=== PATIENT | female | born 1975 | race Caucasian/White ===

== ENCOUNTER 2024-11-16 09:53 | Emergency (ER) | payer SELFPAY ==
--- NOTE | ~2024-11-16 | XR_ITS ---
EXAMINATION: XR chest 2V DATE: 11/16/2024 12:41 INDICATION: Chest tightness TECHNIQUE: PA and lateral views of the chest were obtained. COMPARISON: None FINDINGS: The lungs are clear with no focal airspace opacities, pulmonary edema, pleural effusion or pneumothor ax. The cardiomediastinal silhouette is normal. Mild thoracic spondylosis. IMPRESSION: 1. No acute cardiopulmonary disease. Reviewed, dictated and finalized at location A.
[2024-11-16 09:56] VITALS: BP 174/114; PULSE 69; RESP 16; TEMP 36.4; O2SAT 99
--- NOTE | 2024-11-16 10:01 | ECG_ITS ---
Test Date: 2024-11-16 10:06:30 Measurements Intervals [place] Rate: 60 P: 21 ND: 147 QRS: 39 QRSD: 89 T: 41 QT: 407 QTc: 410 Interpretive Statements SINUS RHYTHM BASELINE ARTIFACT- I, II, AVR NORMAL ECG No previous ECG available for comparison Electronically Signed On 11-16-2024 10:16:18 CDT by Luigi Toro D.O.
[2024-11-16 10:32] LABS: Basophils Percent Auto 0.3 % (0.2-1.2); Eosinophils Absolute Auto 0.2 K/mm3 (0-0.3); Eosinophils Percent Auto 2.3 % (0-4.4); Hematocrit 41.9 % (37.0-47.0); Hemoglobin 13.7 g/dL (12.0-15.0); Immature Granulocyte Absolute 0.02 K/mm3 (0.00-0.031); Immature Granulocyte Percent A 0.2 % (0-0.5); Lymphocytes Absolute Auto 1.42 K/mm3 (0.9-3.2); Lymphocytes Percent Auto 16.4 % (18.3-44.2); Mean Corpuscular HGB Conc 32.7 g/dl (32-36); Mean Corpuscular Hemoglobin 29.3 pg (26-34); Mean Corpuscular Volume 89.7 fl (80-100); Mean Platelet Volume 10.4 fl (7.4-10.4); Monocytes Absolute Auto 0.6 K/mm3 (0.1-0.6); Monocytes Percent Auto 6.5 % (2.6-8.5); Neutrophils Absolute Auto 6.4 K/mm3 (1.3-6.7); Neutrophils Percent Auto 74.3 % (45.5-73.1); Platelet Count Result 251 k/mm3 (150-375); Red Blood Count 4.67 M/mm3 (4.2-5.4); Red Cell Distribution Width 13.2 % (11.5-14.5); White Blood Count 8.7 K/mm3 (4.5-10.0)
[2024-11-16 10:42] LABS: Alanine Aminotransferase 20 U/L (6-35); Albumin Level 4.4 g/dL (3.5-5.1); Alkaline Phosphatase 69 U/L (38-126); Anion Gap 11 mmol/L (4-12); Aspartate Amino Transferase 21 U/L (14-36); Bilirubin,Total 0.9 mg/dL (0.2-1.3); Blood Urea Nitrogen 13 mg/dL (7-17); Calcium 9.1 mg/dL (8.4-10.2); Carbon Dioxide 24 mmol/L (22-30); Chloride 108 mmol/L (98-107); Estimated CRCL calculation 111 ml/min; Estimated Glomerular Filt Rate > 60; Glucose 107 mg/dL (65-110); Lipase 20 U/L (23-300); Potassium 3.6 mmol/L (3.4-5.0); Sodium 143 mmol/L (137-145)
[2024-11-16 10:49] LABS: INR 1.1; Prothrombin Time 14.3 Seconds (11.1-14.7)
[2024-11-16 10:51] LABS: Partial Thromboplastin Time 45.4 Seconds (22.3-36.8)
--- OUTSIDE RECORDS SUMMARY | 2024-11-16 10:51 | XMS_ITS | CONTINUITY OF CARE DOCUMENT ---
Author Name job kaiser Address Unknown Organization [facility] Address [address] [place] [address] [address] [place] [address] Phone [phone] Care Team Providers Care Manpower Development Advisor Name Role Phone Сергей Arnold MD Unavailable [phone] NAHUN HANKS MD Unavailable NAHUN HANKS MD Unavailable INSURANCE PROVIDERS Payer name Policy type / Coverage type [employer] party ID HEALTHCARE AND FAMILY SERVICES Medicaid 1 [id number]
[2024-11-16 10:54] LABS: Troponin I < 0.012 ng/mL (0.000-0.034)
--- NOTE | 2024-11-16 11:20 | ED.ANXIETY ---
HPI - Anxiety General Chief Complaint: Anxiety <Court Sheridan PA-C - Last Filed: 11/16/24 15:07> Stated Complaint: multiple complaints <Court Sheridan PA-C - Last Filed: 11/16/24 15:07> Time Seen by Provider: 11/16/24 11:20 <Court Sheridan PA-C - Last Filed: 11/16/24 15:07> Focused HPI: This is a 49 year Reports she has had a lot of change in her life and it is overwhelming her. Reports she does not feel like she wants to eat. Reports a headache. Reports she feels shaky. Her heart is beating fast. Reports my body just doesn't feel like me . No thoughts of harming herself or anyone else. GENERAL: Well-appearing, well-nourished, and in no acute distress. HEAD: Normocephalic, atraumatic. CHEST: Clear to auscultation. ?No respiratory distress. HEART: Regular rate and rhythm.? NEURO: ?Alert and oriented x3. Patient screened in triage and initial orders placed.? ?Additional care and disposition to be based upon?diagnostic testing and treatment. <Court Sheridan PA-C - Last Filed: 11/16/24 15:07> History of Present Illness HPI narrative: Agree with HPI. Patient reports increased stress related to being unemployed and financial issues. When she tries to eat she feels too nauseous to do some. She is having some depression. No thoughts of harm to self or others. <Oscar Chavez MD - Last Filed: 11/16/24 14:56> Related Data Allergies/Adverse Reactions: Allergies Allergy/AdvReac Type Severity Reaction Status Date / Time Penicillins Allergy Hives Verified 11/16/24 10:00 <Court Sheridan PA-C - Last Filed: 11/16/24 15:07> Review of Systems Review of Systems: All systems reviewed & are unremarkable except as noted in HPI and below <Oscar Chavez MD - Last Filed: 11/16/24 14:56> Constitutional: Constitutional: Reports no additional constitutional complaints <Oscar Chavez MD - Last Filed: 11/16/24 14:56> ENT: Reports system reviewed and no additional complaints, except as documented <Oscar Chavez MD - Last Filed: 11/16/24 14:56> Cardiovascular: Cardiovascular: Reports no additional cardiovascular complaints <Oscar Chavez MD - Last Filed: 11/16/24 14:56> Respiratory: Respiratory: Reports no additional respiratory complaints <Oscar Chavez MD - Last Filed: 11/16/24 14:56> Gastrointestinal: Gastrointestinal: Reports no additional gastrointestinal complaints <Oscar Chavez MD - Last Filed: 11/16/24 14:56> Neurologic: Reports system reviewed and no additional complaints, except as documented <Oscar Chavez MD - Last Filed: 11/16/24 14:56> Psychiatric: Psychiatric: Denies anxiety, Reports depression, Denies homicidal ideation and Denies suicidal ideation <Oscar Chavez MD - Last Filed: 11/16/24 14:56> PMFSH Past Medical History Medical History: Medical History (Updated 11/16/24 @ 15:[address] Sheridan PA-C) History of hypertension <Court Sheridan PA-C - Last Filed: 11/16/24 15:07> Social History Social History: Social History (Updated 11/16/24 @ 11:[address] Sheridan PA-C) Smoking status: Current every day smoker Tobacco type: e-cigarettes/vaping Alcohol intake: current Alcohol use details: occasional Substance use: current Substance use type: does not use <Court Sheridan PA-C - Last Filed: 11/16/24 15:07> Exam Narrative: GENERAL: Tearful-appearing, well-nourished, and in no acute distress. HEAD: Normocephalic, atraumatic. ENT: Nares clear, no rhinorrhea or epistaxis. Mucous membranes moist. NECK: Supple. CHEST: Clear to auscultation. No respiratory distress. HEART: Regular rate and rhythm. Normal peripheral pulses. ABDOMEN: Soft, nontender, nondistended. EXTREMITIES: Normal range of motion. No edema. SKIN: Warm, dry, no rash. NEURO: Alert and oriented x3. PSYCH: Tearful, reports depression but no SI/HI. Normal thought content. <Oscar Chavez MD - Last Filed: 11/16/24 14:56> Course Course Emergency Course: No acute lab abnormalities. Discussed follow-up with a therapist for her depression. Patient is having some headaches a Toradol given. Discharge home. <Oscar Chavez MD - Last Filed: 11/16/24 14:56> Vital Signs Vital signs: Vital Signs Temperature 97.6 F 11/16/24 09:56 Pulse Rate 69 11/16/24 09:56 Respiratory Rate 16 11/16/24 09:56 Blood Pressure 174/114 H 11/16/24 09:56 Pulse Oximetry 99 11/16/24 09:56 Oxygen Delivery Room Air 11/16/24 09:56 Temperature 97.6 F 11/16/24 09:56 Pulse Rate 62 11/16/24 15:00 Respiratory Rate 15 11/16/24 15:00 Blood Pressure 145/88 H 11/16/24 15:00 Pulse Oximetry 100 11/16/24 15:00 Oxygen Delivery Room Air 11/16/24 09:56 <Court Sheridan PA-C - Last Filed: 11/16/24 15:07> Vital Signs Temperature 97.6 F 11/16/24 09:56 Pulse Rate 69 11/16/24 09:56 Respiratory Rate 16 11/16/24 09:56 Blood Pressure 174/114 H 11/16/24 09:56 Pulse Oximetry 99 11/16/24 09:56 Oxygen Delivery Room Air 11/16/24 09:56 Temperature 97.6 F 11/16/24 09:56 Pulse Rate 62 11/16/24 15:00 Respiratory Rate 15 11/16/24 15:00 Blood Pressure 145/88 H 11/16/24 15:00 Pulse Oximetry 100 11/16/24 15:00 Oxygen Delivery Room Air 11/16/24 09:56 <Oscar Chavez MD - Last Filed: 11/16/24 14:56> MDM - Anxiety Lab Data Result diagrams: 11/16/24 10:18 11/16/24 10:18 <Court Sheridan PA-C - Last Filed: 11/16/24 15:07> Labs: Lab Results 11/16/24 11/16/24 Range/Units 10:18 13:15 WBC 8.7 (4.5-10.0) K/mm3 RBC 4.67 (4.2-5.4) M/mm3 Hgb 13.7 (12.0-15.0) g/dL Hct 41.9 (37.0-47.0) % MCV 89.7 (80-100) fl MCH 29.3 (26-34) pg MCHC 32.7 (32-36) g/dl RDW 13.2 (11.5-14.5) % Plt Count 251 (150-375) k/mm3 MPV 10.4 (7.4-10.4) fl Immature Gran % (Auto) 0.2 (0-0.5) % Neut % (Auto) 74.3 H (45.5-73.1) % Lymph % (Auto) 16.4 L (18.3-44.2) % [place] % (Auto) 6.5 (2.6-8.5) % Eos % (Auto) 2.3 (0-4.4) % Baso % (Auto) 0.3 (0.2-1.2) % Lymph # (Auto) 1.42 (0.9-3.2) K/mm3 [place] # (Auto) 0.6 (0.1-0.6) K/mm3 Eos # (Auto) 0.2 (0-0.3) K/mm3 Baso # (Auto) 0.0 (0.0-0.1) K/mm3 Abs Immat Gran (auto) 0.02 (0.00-0.031) K/mm3 Absolute Neuts (auto) 6.4 (1.3-6.7) K/mm3 Absolute Nucleated RBC 0.000 (0.0-0.012) K/mm3 Nucleated RBC % 0.0 (0.0-0.2) % PT 14.3 (11.1-14.7) Seconds INR 1.1 APTT 45.4 H (22.3-36.8) Seconds Sodium 143 (137-145) mmol/L Potassium 3.6 (3.4-5.0) mmol/L Chloride 108 H (98-107) mmol/L Carbon Dioxide 24 (22-30) mmol/L Anion Gap 11 (4-12) mmol/L BUN 13 (7-17) mg/dL Creatinine 0.66 L (0.7-1.0) mg/dL Estim Creat Clear Calc 111 ml/min Estimated GFR > 60 (59 - ) Glucose 107 (65-110) mg/dL Calcium 9.1 (8.4-10.2) mg/dL Total Bilirubin 0.9 (0.2-1.3) mg/dL AST 21 (14-36) U/L ALT 20 (6-35) U/L Alkaline Phosphatase 69 (38-126) U/L Troponin I < 0.012 < 0.012 (0.000-0.034) ng/mL Total Protein 7.0 (6.3-8.2) g/dL Albumin 4.4 (3.5-5.1) g/dL Lipase 20 L (23-300) U/L TSH (Reflex) 0.896 (0.465-4.68) uIU/mL Ethyl Alcohol < 10 (<10) mg/dL <Court Sheridan PA-C - Last Filed: 11/16/24 15:07> Lab Results 11/16/24 11/16/24 Range/Units 10:18 13:15 WBC 8.7 (4.5-10.0) K/mm3 RBC 4.67 (4.2-5.4) M/mm3 Hgb 13.7 (12.0-15.0) g/dL Hct 41.9 (37.0-47.0) % MCV 89.7 (80-100) fl MCH 29.3 (26-34) pg MCHC 32.7 (32-36) g/dl RDW 13.2 (11.5-14.5) % Plt Count 251 (150-375) k/mm3 MPV 10.4 (7.4-10.4) fl Immature Gran % (Auto) 0.2 (0-0.5) % Neut % (Auto) 74.3 H (45.5-73.1) % Lymph % (Auto) 16.4 L (18.3-44.2) % [place] % (Auto) 6.5 (2.6-8.5) % Eos % (Auto) 2.3 (0-4.4) % Baso % (Auto) 0.3 (0.2-1.2) % Lymph # (Auto) 1.42 (0.9-3.2) K/mm3 [place] # (Auto) 0.6 (0.1-0.6) K/mm3 Eos # (Auto) 0.2 (0-0.3) K/mm3 Baso # (Auto) 0.0 (0.0-0.1) K/mm3 Abs Immat Gran (auto) 0.02 (0.00-0.031) K/mm3 Absolute Neuts (auto) 6.4 (1.3-6.7) K/mm3 Absolute Nucleated RBC 0.000 (0.0-0.012) K/mm3 Nucleated RBC % 0.0 (0.0-0.2) % PT 14.3 (11.1-14.7) Seconds INR 1.1 APTT 45.4 H (22.3-36.8) Seconds Sodium 143 (137-145) mmol/L Potassium 3.6 (3.4-5.0) mmol/L Chloride 108 H (98-107) mmol/L Carbon Dioxide 24 (22-30) mmol/L Anion Gap 11 (4-12) mmol/L BUN 13 (7-17) mg/dL Creatinine 0.66 L (0.7-1.0) mg/dL Estim Creat Clear Calc 111 ml/min Estimated GFR > 60 (59 - ) Glucose 107 (65-110) mg/dL Calcium 9.1 (8.4-10.2) mg/dL Total Bilirubin 0.9 (0.2-1.3) mg/dL AST 21 (14-36) U/L ALT 20 (6-35) U/L Alkaline Phosphatase 69 (38-126) U/L Troponin I < 0.012 < 0.012 (0.000-0.034) ng/mL Total Protein 7.0 (6.3-8.2) g/dL Albumin 4.4 (3.5-5.1) g/dL Lipase 20 L (23-300) U/L TSH (Reflex) 0.896 (0.465-4.68) uIU/mL Ethyl Alcohol < 10 (<10) mg/dL <Oscar Chavez MD - Last Filed: 11/16/24 14:56> Imaging Data Radiologist's impression: ITS Impressions Chest X-Ray 11/16/24 12:42 IMPRESSION: 1. No acute cardiopulmonary disease. <Oscar Chavez MD - Last Filed: 11/16/24 14:56> ECG Data EKG #1: ECG completion date: 11/16/24 <Oscar Chavez MD - Last Filed: 11/16/24 14:56> ECG completion time: 13:12 <Oscar Chavez MD - Last Filed: 11/16/24 14:56> EKG Interpretation: bradycardia (56), sinus rhythm, non-specific ST changes, normal QRS, normal QT and NL axis <Oscar Chavez MD - Last Filed: 11/16/24 14:56> Critical Care Time Critical Care Time Critical Care Time: No <Court Sheridan PA-C - Last Filed: 11/16/24 15:07> Discharge Plan Discharge Clinical Impression: Nausea, Generalized headache Depression Qualifiers: Depression Type: unspecified Qualified Code(s): F32.A - Depression, unspecified <Court Sheridan PA-C - Last Filed: 11/16/24 15:07> Patient Disposition: Home <Corut Sheridan PA-C - Last Filed: 11/16/24 15:07> Condition: Stable <Court Sheridan PA-C - Last Filed: 11/16/24 15:07> Instructions: Depression (ED), General Headache (ED) <Court Sheridan PA-C - Last Filed: 11/16/24 15:07> Additional Instructions: Return ER if you are having thoughts of harming herself or others, you develop fever over 100.4? F, you cannot keep down food or water, or you have additional concerns. <Court Sheridan PA-C - Last Filed: 11/16/24 15:07> Patient Language: Azerbaijani <Court Sheridan PA-C - Last Filed: 11/16/24 15:07> Prescriptions: New ondansetron 4 mg tablet,disintegrating 4 mg PO Q6H PRN (Reason: nausea and vomiting) Qty: 10 0RF <Court Sheridan PA-C - Last Filed: 11/16/24 15:07> Follow-up/Referrals: [facility] [Outside] - 1 Week PHYSICIAN NOT ON STAFF,NONSTAFF [Non-Staff] - 1 Week <Court Sheridan PA-C - Last Filed: 11/16/24 15:07>
[2024-11-16 12:15] LABS: Ethanol < 10 mg/dL (<10)
[2024-11-16] MEDS: ONDANSETRON INJ 4 MG/2 ML VIAL IV PUSH (12:32)
[2024-11-16] MEDS: ACETAMINOPHEN 500 MG TABLET 1000 MG PO (12:32)
[2024-11-16] MEDS: SODIUM CHLORIDE 0.9% IV 1,000 ML 999 ML IV CONT (12:32)
[2024-11-16 12:52] LABS: Thyroid Stimulating Hormone Reflex 0.896 uIU/mL (0.465-4.68)
--- NOTE | 2024-11-16 13:03 | ECG_ITS ---
Test Date: 2024-11-16 13:12:02 Measurements Intervals [place] Rate: 56 P: 20 AL: 142 QRS: 42 QRSD: 90 T: 42 QT: 401 QTc: 388 Interpretive Statements SINUS BRADYCARDIA WITH SINUS ARRHYTHMIA BASELINE ARTIFACT- I, II, AVR, AVL, AVF, V1 BORDERLINE ECG Compared to ECG 11/16/2024 10:06:30 NO SIGNIFICANT CHANGE Electronically Signed On 11-16-2024 13:16:03 CDT by Luigi Toro D.O.
--- OUTSIDE RECORDS SUMMARY | 2024-11-16 13:27 | XMS_ITS | Clinical Summary ---
Author Organization [facility] Address [address] [place] [address] Care Team Providers Care Puttying And Calking Supervisor Name Role Phone Renetta Degroot Primary Care Provider [phone] Source Comments [facility] Affiliates and Associated Physician Practices is amultiple site organization consisting of ambulatory clinics and hospital sitesin [place], [place], [place] and [place]. This disclosure is being madepursuant to the Care Everywhere program and may not contain all information available regarding this patient. Last updated 18.[facility] Allergies Active Allergy Reactions Criticality Noted Date Comments Penicillins Rash Medium 01/23/2017 Tramadol Itching 11/12/2017 Medications * Be aware that medications may not be up to date on this document. Alwaysverify current medications with the patient. Medication Sig Dispensed Refills Start Date End Date Status methocarbamol (ROBAXIN) 750 MG tablet Take 1 Tab by mouth every 8 hours as needed for Muscle Spasms 20 Tab 01/23/2017 Active Additional Information Patient not taking.Reported on 12/22/2023 lidocaine (LIDODERM) 5 % patch 1 Patch once daily 30 Patch 01/23/2017 Active naproxen (NAPROSYN) 500 MG tablet Take 1 Tab by mouth 2 times daily as needed for Pain 20 Tab 01/23/2017 Active amLODIPine (NORVASC) 5 MG tablet Take 5 mg by mouth once daily Active valACYclovir (VALTREX) 500 MG tablet Take 500 mg by mouth once daily Active meclizine (ANTIVERT) 25 MG tablet Take 1 tablet by mouth 3 times daily 12 tablet 02/03/2019 Active Additional Information Patient not taking.Reported on 12/22/2023 losartan (Cozaar) 50 MG tablet Take 1 (one) tablet by mouth once daily Active Social History Tobacco Use Types Packs/Day Years Used Date Smoking Tobacco: Never Smokeless Tobacco: Never Alcohol Use Standard Drinks/Week Comments No 0 (1 standard drink = 0.6 oz pur e alcohol) Sex and Gender Information Value Date Recorded Sex Assigned at Not on file Gender Identity Not on file Sexual Orientation Not on file Last Filed Vital Signs Vital Sign Reading Time Taken Comments Blood Pressure 172/96 12/22/2023 11:24 AM CDT Pulse 66 12/22/2023 11:24 AM CDT Temperature 36.5 C (97.7 F) 12/22/2023 11:24 AM CDT Respiratory Rate 16 12/22/2023 11:24 AM CDT Oxygen Saturation 98% 12/22/2023 11:24 AM CDT Inhaled Oxygen Concentration - - Weight 99.6 kg (219 lb 9.3 oz) 12/22/2023 11:24 AM CDT Height 176.5 cm (5' 9.49 ) 12/22/2023 11:24 AM C DT Body Mass Index 31.97 12/22/2023 11:24 AM CDT Plan of Treatment Health Maintenance Due Date Last Done Comments COLOGUARD (AGES 45-75) - COL ON CA SCREENING 1975 COLON MONITORING 1975 COLONOSCOPY - COLON CA SCREENING 1975 CT COLONOGRAPHY - COLON CA SCREENING 1975 Colorectal Cancer Screening 1975 FIT - COLON CA SCREENING 1975 FLEX SIG - COLON CA SCREENING 1975 LIPID TESTING 1975 MAMMOGRAM 1975 PAP SMEAR 1975 HIV SCREENING 1990 HEPATITIS C SCREENING 03/17/1993 DTAP/TDAP/TD VACCINES (1 - Tdap) 1994 HEPATITIS B VACCINE (1 of 3 - 19+ 3-dose series) 1994 COVID-19 VACCINE (2 - 2023-2 5 season) 2024 04/14/2021 DEPRESSION SCREENING 08/11/2024 ZOSTER VACCINE (1 of 2) 2025 INFLUENZA VACCINE (Season Ended) 2025 HIB VACCINE Aged Out No longer eligi ble based on patient's age to complete this topic HPV VACCINE Aged Out No longer eligi ble based on patient's age to complete this topic MENINGOCOCCAL (Group B) VACC INE SHARED DECISION-MAKING Aged Out No longer eligibl e based on patient's age to complete this topic MENINGOCOCCAL GROUPS A/C/Y/W VACCINE Aged Out No longer eligible b ased on patient's age to complete this topic PNEUMOCOCCAL VACCINE Aged Out No long er eligible based on patient's age to complete this topic Care Teams Puttying And Calking Supervisor Relationship Specialty Start Date End Date Renetta Degroot PA [address] [place] [id number] PCP - General Physician Mri Ct Tech 01/23/17
--- OUTSIDE RECORDS SUMMARY | 2024-11-16 13:27 | XMS_ITS | Clinical Summary ---
Author Organization [facility] Address [address] [place] [address] Care Team Providers Care Studio Coordinator Name Role Phone Renetta Degroot PA-C Primary Care Provider [phone] Allergies Active Allergy Reactions Criticality Noted Date Comments Penicillin V Anaphylaxis High 11/13/2018 Medications ondansetron 4 MG disintegrating tablet Take 1 tablet (4 mg total) by mouth every 8 (eight) hours as needed for Nausea. 12 tablet 9 Active guaiFENesin-Codeine 100-10 MG/5ML Syrup Take 10 mLs by mouth every 6 (six) hours as needed (cough). 100 mL 9 Active amLODIPine (NORVASC) 5 MG tablet Take 1 tablet (5 mg total) by mouth daily. 30 tablet 1 Active methylPREDNISolone, KADIE, 4 MG tablet Take 1 tablet (4 mg total) by mouth daily. MEDROL dose pack as directed 1 each 1 Active ondansetron 4 MG disintegrating tablet Take 1 tablet (4 mg total) by mouth every 8 (eight) hours as needed for Nausea. 20 tablet 1 Active Social History Tobacco Use Types Packs/Day Years Used Date Smoking Tobacco: Never Smokeless Tobacco: Never Alcohol Use Standard Drinks/Week Comments No 0 (1 standard drink = 0.6 oz pur e alcohol) AUDIT-C Answer Date Recorded Frequency of Alcohol Consumption Never 11/13/2018 Average Number of Drinks Not on file 019 Frequency of Binge Drinking Not on file 12/2018 Comments No Sex and Gender Information Value Date Recorded Sex Assigned at Not on file Legal Sex Female 2:42 PM CDT Gender Identity Not on file Sexual Orientation Not on file Last Filed Vital Signs Vital Sign Reading Time Taken Comments Blood Pressure 133/95 08/06/2021 11:48 AM VACATION GUIDE Pulse 60 08/06/2021 11:48 AM VACATION GUIDE Temperature 36.8 C (98.2 F) 08/06/2021 11:48 AM VACATION GUIDE Respiratory Rate 20 08/06/2021 11:48 AM VACATION GUIDE Oxygen Saturation 97% 08/06/2021 11:48 AM VACATION GUIDE Inhaled Oxygen Concentration - - Weight 97.5 kg (215 lb) 09/03/2020 12:46 PM VACATION GUIDE Height 175.3 cm (5' 9 ) 09/03/2020 12:46 PM VACATION GUIDE Body Mass Index 31.75 09/03/2020 12:46 PM VACATION GUIDE Plan of Treatment Health Maintenance Due Date Last Done Comments Cervical Cancer Screening Pa p Smear (Age 30 to 64) Every 3 Years 1975 Colorectal Cancer Screening Colonoscopy (10 Years) 1975 Annual Physical 1978 Hepatitis C 1993 Hepatitis B Vaccines (1 of 3 - 19+ 3-dose series) 1994 DTaP, Tdap and Td Vaccines ( 1 - Tdap) 02/25/1999 02/24/1999 Cervical Cancer Screening Pa p with HPV Testing (Age 30 to 64) Every 5 Years 2005 Cervical Cancer Screening with HPV 2005 Mammogram Screening 2015 COVID-19 Vaccine (2 - 2023-2 5 season) 2024 04/14/2021 Meningococcal B Vaccine Aged Out No l onger eligible based on patient's age to complete this topic Meningococcal Vaccine Aged Out No chucky maricel eligible based on patient's age to complete this topic Pneumococcal Vaccine: Pediat rics (0 to 5 Years) and At-Risk Patients (6 to 64 Years) Aged Out No longer eligi ble based on patient's age to complete this topic RSV Immunizations Under 20 Months Aged Out No longer eligible based on patient's age to complete this topic Insurance COVID19 [facility] [place] [address] Care Teams Studio Coordinator Relationship Specialty Start Date End Date Renetta Degroot PA-C PCP - General 09/03/20
--- OUTSIDE RECORDS SUMMARY | 2024-11-16 13:27 | XMS_ITS | CONTINUITY OF CARE DOCUMENT ---
Author Name job kaiser Address Unknown Organization [facility] Address [address] [place] [address] [address] [place] [address] Phone [phone] Care Team Providers Care Deli Cutter Slicer Name Role Phone Сергей Arnold MD Unavailable [phone] NAHUN HANKS MD Unavailable [phone] NAHUN HANKS MD Unavailable INSURANCE PROVIDERS Payer name Policy type / Coverage type [place] [employer] HEALTHCARE AND FAMILY SERVICES Medicaid 1 [id number]
--- OUTSIDE RECORDS SUMMARY | 2024-11-16 13:27 | XMS_ITS | Referral Summary ---
Author Organization [facility] Address [address] [place] [address] Care Team Providers Care Band Sawmill Operator Name Role Phone Renetta Degroot Primary Care Provider [phone] Allergies Active Allergy Reactions Criticality Noted Date Comments Penicillins Anaphylaxis,Hives,Rash High 08/30/2014 Hives - Tramadol Itching High 11/12/2017 Other reaction(s): Rash - Medications promethazine (PHENERGAN) 25 mg suppository Insert 1 suppository (25 mg total) into the rectum every 6 (six) hours as needed for nausea or vomiting 12 suppository 08/10/20 21 Active HYDROcodone-tonia taminophen (NORCO) 5-325 mg per tabletIndicatio ns:Pain Take 1 tablet by mouth every 6 (six) hours as needed for pain 10 tablet 11/29/19 23 Active ondansetron (ZOFRAN) 4 mg tablet Take 1 tablet (4 mg total) by mouth every 6 (six) hours 12 tablet 11/29/19 23 Active cephalexin (KEFLEX) 500 mg capsule Take 1 capsule (500 mg total) by mouth 4 (four) times a day 28 capsule 11/29/19 23 Active Social History Tobacco Use Types Packs/Day Years Used Date Smoking Tobacco: Never Tobacco Cessation:Counseling Given: Not Answered Alcohol Use Standard Drinks/Week Comments Never 0 (1 standard drink = 0.6 oz pur e alcohol) Personal Safety Answer Date Recorded Getting School Help Needed Not on file 05/01 Comments No Sex and Gender Information Value Date Recorded Sex Assigned at Not on file Legal Sex Female 7:32 PM DYNAMO TENDER Gender Identity Not on file Sexual Orientation Not on file Last Filed Vital Signs Vital Sign Reading Time Taken Comments Blood Pressure 166/102 03/31/2023 3:15 PM CDT Pulse 76 03/31/2023 3:15 PM CDT Temperature 36.7 C (98.1 F) 03/31/2023 3:15 PM CDT Respiratory Rate 20 03/31/2023 3:15 PM CDT Oxygen Saturation 100% 03/31/2023 3:15 PM CDT Inhaled Oxygen Concentration - - Weight 103.9 kg (229 lb 0.9 oz) 03/31/2023 3:15 PM CDT Height 175.3 cm (5' 9 ) 03/31/2023 3:15 PM CDT Body Mass Index 33.83 03/31/2023 3:15 PM CDT Plan of Treatment Not on file Care Teams Band Sawmill Operator Relationship Specialty Start Date End Date Renetta Degroot PA [address] [place] [address] PCP - General 12/11/20
--- OUTSIDE RECORDS SUMMARY | 2024-11-16 13:27 | XMS_ITS | Clinical Summary ---
Author Organization [facility] Address [address] [place] [address] Care Team Providers Care Drama Therapist Name Role Phone Renetta Degroot Primary Care Provider [phone] Allergies Active Allergy Reactions Criticality Noted Date [...] a day 28 capsule 11/29/19 23 Active Surgical History Surgery Date Site/Laterality Comments HYSTERECTOMY Medical History Medical History Date Comments Hypertension Social History Tobacco Use Types Packs/Day Years [...] on file Legal Sex Female 7:32 PM LABEL PASTER Gender Identity Not on file Sexual Orientation Not on file Obstetrics History Last Filed Vital Signs Vital Sign Reading [...] 03/31/2023 3:15 PM CDT Plan of Treatment Health Maintenance Due Date Last Done Comments Breast Cancer Screening-Mammogram 1975 Colon Cancer Screening-Colonoscopy 1975 Depression Screening 1975 Hepatitis C Screening 1975 Hepatitis B Screening 1993 Regular Well Visit/Exam 18-64 1993 DTaP/Tdap/Td Vaccine (1 - Tdap) 02/25/199902/24/ 9 Covid-19 Vaccine (2 - 2023-2 5 season) 2024 04/14/2021 Influenza Vaccine (#1) 2024 Pneumococcal vaccine <65 Aged Out No longer eligible based on patient's age to complete this topic Care Teams Drama Therapist Relationship Specialty Start Date End Date Renetta Degroot PA [address] [place] [address] PCP - General 12/11/20
[2024-11-16 13:50] LABS: Troponin I < 0.012 ng/mL (0.000-0.034)
[2024-11-16 14:09] VITALS: BP 148/87; PULSE 75; RESP 18; O2SAT 98
--- NOTE | 2024-11-16 14:50 | PC.NURSE ---
Patient ambulated to the restroom with steady gate
[2024-11-16] MEDS: KETOROLAC 30 MG/ML VIAL (*BKC) IV PUSH (14:59)
[2024-11-16 15:00] VITALS: BP 145/88; PULSE 62; RESP 15; O2SAT 100
== END 2024-11-16 15:22 | disposition home or self-care (01) ==
PROVIDERS: Physician Assistant; Student in an Organized Health Care Education/Training Program; Emergency Provider Emergency Medicine
DX: R51.9 Headache, unspecified (principal); F32.A Depression, unspecified; R11.0 Nausea; R00.1 Bradycardia, unspecified; I10 Essential (primary) hypertension
CPT/HCPCS: 36415; 71046; 80053; 82077; 83690; 84443; 84484; 85025; 85610; 85730; 93005; 96361; 96374; 96375; 99284; A9270; J1885; J2405; J7030

== ENCOUNTER 2024-12-05 10:14 | Emergency (ER) | payer SELFPAY ==
--- NOTE | ~2024-12-05 | CT_ITS ---
EXAMINATION: CT brain wo con DATE: 12/05/2024 10:28 INDICATION: Severe headache TECHNIQUE: Computed tomography (CT) of the head was performed without intravenous contrast. Sagittal and coronal reconstructions were performed. The mA was adjusted according to patient size. Iterative reconstruction technique was employed. The dose-length product was 605.33 mGy-cm. COMPARISON: None FINDINGS: No acute intracranial hemorrhage, acute infarction or abnormal extra axial fluid collection. Ventricl es are normal and symmetric. The pituitary appears enlarged, completely filling the sella bulging sli ghtly above the level of the sella. The orbits, paranasal sinuses and mastoid air cells are normal. IMPRESSION: 1. Pituitary appears enlarged which could be due to pituitary hyperplasia, pituitary adenoma, versus apophysitis or venous congestion in the setting of intracranial hypertension. Correlate clinically an d consider follow-up pre and post contrast pituitary protocol MRI. Reviewed, dictated and finalized at location A. IMPRESSION: 1. Pituitary appears enlarged which could be due to pituitary hyperplasia, pitu itary adenoma, versus apophysitis or venous congestion in the setting of intrac ranial hypertension. Correlate clinically and consider follow-up pre and post c ontrast pituitary protocol MRI.
--- NOTE | ~2024-12-05 | XR_ITS ---
EXAMINATION: XR chest 1V portable DATE: 12/05/2024 10:30 INDICATION: Hypertension TECHNIQUE: frontal view of the chest was obtained. COMPARISON: Chest radiograph dated 11/16/2024 FINDINGS: Mild linear discoid atelectasis at the lateral left lower lung zone. No other airspace opacities, pul monary edema, pleural effusion or pneumothorax. The cardiomediastinal silhouette is normal. Mild thor acolumbar levocurvature. IMPRESSION: 1. Mild discoid atelectasis in the left lower lung zone. Reviewed, dictated and finalized at location A.
--- OUTSIDE RECORDS SUMMARY | 2024-12-05 10:16 | XMS_ITS | Clinical Summary ---
Author Organization [facility] Address [address] [place] [address] Care Team Providers Care Finnish Rubber Name Role Phone Renetta Degroot PA-C Primary Care Provider [phone]- [phone] Allergies Active Allergy Reactions Criticality Noted Date [...] mouth daily. 30 tablet 1 Active methylPREDNISolone, KAIDE, 4 MG tablet Take 1 tablet (4 [...] Comments Blood Pressure 133/95 08/06/2021 11:48 AM MACHINE FIXER Pulse 60 08/06/2021 11:48 AM MACHINE FIXER Temperature 36.8 C (98.2 F) 08/06/2021 11:48 AM MACHINE FIXER Respiratory Rate 20 08/06/2021 11:48 AM MACHINE FIXER Oxygen Saturation 97% 08/06/2021 11:48 AM MACHINE FIXER Inhaled Oxygen Concentration - - Weight 97.5 kg (215 lb) 09/03/2020 12:46 PM MACHINE FIXER Height 175.3 cm (5' 9 ) 09/03/2020 12:46 PM MACHINE FIXER Body Mass Index 31.75 09/03/2020 12:46 PM MACHINE FIXER Plan of Treatment Health Maintenance Due Date [...] 5 Years) and At-Risk Patients (6 to 49 Years) Aged Out No longer eligi ble based on patient's age to complete this topic RSV Immunizations Under 20 Months Aged Out No longer eligible based on patient's age to complete this topic Insurance COVID19 [facility] UNINSURED TESTING [place] [address] Care Teams Finnish Rubber Relationship Specialty Start Date End Date Renetta Degroot PA-C PCP - General 09/03/20
--- OUTSIDE RECORDS SUMMARY | 2024-12-05 10:16 | XMS_ITS | Clinical Summary ---
Author Organization 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
--- OUTSIDE RECORDS SUMMARY | 2024-12-05 10:16 | XMS_ITS | Continuity of Care Document ---
Author Organization [facility] Address [address] [place] [address] Phone Care Team Providers Care Reroller Hand Name Role Phone Jaylin Pablo Unavailable Unavailable Allergies, Adverse Reactions, Alerts Substance Reaction Status Criticality Penicillins Active No Information Procedures Procedure Date Office consultation, [facility] Copay Payment Charge Advance Directives Directive Yes / No Effective Date File Name Resuscitation Not Answered N/A N/A Life Support Not Answered N/A N/A Intubation Not Answered N/A N/A Antibiotics Not Answered N/A N/A IV Fluid Support Not Answered N/A N/A Tube Feed Not Answered N/A N/A Other Directive N/A N/A WARNING:The information contained in this section is historical and is provided for information only and does not constitute a legal document or any assurance that the information is still accurate. Please verify the information with the hercules of the legal document before using it for clinical purposes. Encounters Encounter Description Practice Location Reason(s) For Visit Diagnoses Date Provider Providers Copied on Encounter Office consultation , [facility], [address] [place] [address], [id number], tel:[phone] [place] [facility] cervical spine pain (chief complaint) lumbar spine pain (chief complaint) BackacheDegenerat ion Of Lumbosacral Disc (DDD)Sciatica Due To Displacement Of Lumbar DiscLumbago - Low Back Pain 3 Elliot Mosqueda. [address] [place] [address], [id number] , . tel:[phone] Family History Family Member Type Diagnosis Age At Onset Problem (finding) Family history of Cance r Payers Payer name Insurance type Covered republican ID Authoriza tion(s) IDPA [id number] Social History Type Description Quantity Date Captured Comments Alcohol Use Details Unknown Caffeine Use Details Unknown Tobacco Use Status Smoking Status Current every day smoker Smoking Tobacco Use Details Cigarette: No Details Available Cigarette: No Details Available Sex Female Vital Signs Date / Time: Height Weight BMI Pulse Rate Blood Pressure Temperature Respiratory Rate Body Surface Area Head Circumference Head Circ. Percentile Wt./Brandan. Percentile BMI percentile Pulse Ox Inhaled Ox 9:55 AM 69.00 in 88.904 kg (196.00 lbs) 38.2 8 kg/m eter (2) 136/90 mm[Hg] 1.94 meter(2) Chief Complaint And Reason For Visit From encounter dated '05/28/2013 10:00'. cervical spine pain (chief complaint). Description: Onset: 6 months ago. The severity of the problem is moderate. The problem has not changed. The frequency of pain is constant. Pertinent negatives include rash. lumbar spine pain (chief complaint). Description: Location of pain is lower back and right flank. Pain is radiated to the back, right calf and right foot. The patient describes the pain as an ache, burning, numbness and shooting. Context: no injury. Symptoms are aggravated by daily activities, standing and walking. The patient denies relieving factors. Reason For Referral Reason For Referral No Information Plan Of Treatment Date Type Action Status Referral Ordered: referred to [facility] / Dr Elam for LESI (related to Backache) ordered History Of Present Illness Encounter Date Complaint History Of Prese nt Illness cervical spine pain Onset: 6 mon ths ago. The severity of the problem is moderate. The problem has not changed. The frequency of pain is constant. Pertinent negatives include rash. lumbar spine pain Location of pa in is lower back and right flank. Pain is radiated to the back, right calf and right foot. The patient describes the pain as an ache, burning, numbness and shooting. Context: no injury. Symptoms are aggravated by daily activities, standing and walking. The patient denies relieving factors. Functional Status Date Functional Assessmen t No Information Instructions Date Instruction Additional Infor mation Medications as instructed Relate d to Backache Assessments Type Assessment Date No Information Patient Care Teams Name Effective Dates (start - stop) Status Members No Information
--- OUTSIDE RECORDS SUMMARY | 2024-12-05 10:16 | XMS_ITS | CONTINUITY OF CARE DOCUMENT ---
Author Name job kaiser Address Unknown Organization [facility] Address [address] [place] [address] [address] [place] [address] Phone [phone] Care Team Providers Care Chief Operating Officer Name Role Phone Сергей Arnold MD Unavailable [phone] NAHUN HANKS MD Unavailable NAHUN HANKS MD Unavailable INSURANCE PROVIDERS Payer name Policy type / Coverage type Anderson red libertarian ID HEALTHCARE AND FAMILY SERVICES Medicaid 1 [id number]
--- OUTSIDE RECORDS SUMMARY | 2024-12-05 10:16 | XMS_ITS | Clinical Summary ---
Author Organization [facility] Address [address] [place] [address] Care Team Providers Care Criminalist Technician Name Role Phone Renetta Degroot Primary Care Provider [phone] Source Comments [facility],non-[facility] Affiliates and Associated Physician Practices is amultiple site organization consisting of ambulatory clinics and hospital sitesin [place], [place], [place] and [place]. This disclosure is being madepursuant to the Care Everywhere program and may not contain all information available regarding this patient. Last updated 18.[facility] Allergies Active Allergy Reactions Criticality Noted Date Comments Penicillins Rash Medium 01/23/2017 Tramadol Itching 11/12/2017 Medications * Be aware that medications may not be up to date on this document. Alwaysverify current medications with the patient. methocarbamol (ROBAXIN) 750 MG tablet Take 1 Tab by mouth every 8 hours as needed for Muscle Spasms 20 Tab 7 Active Additional Information Patient not taking.Reported on 12/22/2023 lidocaine (LIDODERM) 5 % patch 1 Patch once daily 30 Patch 7 Active naproxen (NAPROSYN) 500 MG tablet Take 1 Tab by mouth 2 times daily as needed for Pain 20 Tab 7 Active amLODIPine (NORVASC) 5 MG tablet Take 5 mg by mouth once daily Active valACYclovir (VALTREX) 500 MG tablet Take 500 mg by mouth once daily Active meclizine (ANTIVERT) 25 MG tablet Take 1 tablet by mouth 3 times daily 12 tablet 9 Active Additional Information Patient not taking.Reported on 12/22/2023 losartan (Cozaar) 50 MG tablet Take 1 (one) tablet by mouth once daily Active Social History Tobacco Use Types Packs/Day Years Used Date Smoking Tobacco: Never Smokeless Tobacco: Never Alcohol Use Standard Drinks/Week Comments No 0 (1 standard drink = 0.6 oz pur e alcohol) Comments No Sex and Gender Information Value Date Recorded Sex Assigned at Not on file Legal Sex Female 9:34 PM MATERIALS CLERK Gender Identity Not on file Sexual Orientation [...] age to complete this topic Care Teams Criminalist Technician Relationship Specialty Start Date End Date Renetta Degroot PA [address] [id number] PCP - General Physician Electrical Control Assembler 01/23/17
--- OUTSIDE RECORDS SUMMARY | 2024-12-05 10:16 | XMS_ITS | Referral Summary ---
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
--- NOTE | 2024-12-05 10:18 | ECG_ITS ---
Test Date: 2024-12-05 10:39:38 Measurements Intervals [place] Rate: 64 P: 17 UT: 154 QRS: 8 QRSD: 88 T: 8 QT: 400 QTc: 416 Interpretive Statements SINUS RHYTHM BORDERLINE ST-T WAVE ABNORMALITY- ANTEROLATERAL LEADS BASELINE ARTIFACT- I, III, AVL, V4-V6 BORDERLINE ECG Compared to ECG 11/16/2024 13:12:02 HEART RATE HAS INCREASED Electronically Signed On 12-05-2024 12:44:49 CDT by Luigi Toro D.O.
--- OUTSIDE RECORDS SUMMARY | 2024-12-05 10:46 | XMS_ITS | Clinical Summary ---
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 [place] [address] PCP - General 12/11/20
--- OUTSIDE RECORDS SUMMARY | 2024-12-05 10:46 | XMS_ITS | Clinical Summary ---
Author Organization [facility] Address [address] [place] [address] Care Team Providers Care Invoice Machine Operator Name Role Phone Renetta Degroot Primary Care Provider [phone] Source Comments [facility],non-[facility] Affiliates and Associated Physician Practices is amultiple site organization consisting of ambulatory clinics and hospital sitesin [place], [place], [place] and [place]. This disclosure is being madepursuant to the Care Everywhere program and may not contain all information available regarding this patient. 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
--- OUTSIDE RECORDS SUMMARY | 2024-12-05 10:46 | XMS_ITS | Referral Summary ---
Author Organization [facility] Address [address] [place] [address] Care Team Providers Care Manager Report Name Role Phone Renetta Degroot Primary Care Provider [phone] Allergies Active Allergy Reactions Criticality Noted Date [...] on file Legal Sex Female 7:32 PM CONTENT SPECIALIST Gender Identity Not on file Sexual Orientation [...] of Treatment Not on file Care Teams Manager Report Relationship Specialty Start Date End Date Renetta Degroot PA [address] [place] [address] PCP - General 12/11/20
--- OUTSIDE RECORDS SUMMARY | 2024-12-05 10:46 | XMS_ITS | CONTINUITY OF CARE DOCUMENT ---
Author Name job kaiser Address Unknown Organization [facility] Address [address] [place] [address] [address] [place] [address] Phone [phone] Care Team Providers Care Patient Financial Advocate Name Role Phone Сергей Arnold MD Unavailable NAHUN HANKS MD Unavailable NAHUN HANKS MD Unavailable INSURANCE PROVIDERS Payer name Policy type / Coverage type [employer] red constitution party ID HEALTHCARE AND FAMILY SERVICES Medicaid 1 [id number]
--- OUTSIDE RECORDS SUMMARY | 2024-12-05 10:46 | XMS_ITS | Continuity of Care Document ---
Author Organization [facility] Address [address] [place] [address] Phone Care Team Providers Care Loss Control Consultant Name Role Phone Jaylin Pablo Unavailable Unavailable Allergies, Adverse Reactions, Alerts Substance Reaction Status Criticality Penicillins Active No Information Procedures Procedure Date Office consultation, [facility] Copay Payment Charge Advance Directives Directive [...] Providers Copied on Encounter Office consultation , [facility], [address] [place] [address], [id number], tel:[phone] [place] [facility] cervical spine pain (chief complaint) lumbar spine pain (chief complaint) BackacheDegenerat ion Of Lumbosacral Disc (DDD)Sciatica Due To Displacement Of Lumbar DiscLumbago - Low Back Pain 3 Elliot Mosqueda. [address] [place] [address], [id number] , . tel:[phone] Family History Family Member Type Diagnosis Age At Onset Problem (finding) Family history of Cance r Payers Payer name Insurance type Covered green party ID Authoriza tion(s) IDPA [id number] Social History Type Description Quantity Date Captured [...]
--- OUTSIDE RECORDS SUMMARY | 2024-12-05 10:46 | XMS_ITS | Clinical Summary ---
Author Organization [facility] Address [address] [place] [address] Care Team Providers Care Grade Foreman Name Role Phone Renetta Degroot PA-C Primary Care Provider [phone]- [phone] Allergies Active Allergy Reactions Criticality Noted Date [...] Comments Blood Pressure 133/95 08/06/2021 11:48 AM NATURAL HISTORY COLLECTIONS CURATOR Pulse 60 08/06/2021 11:48 AM NATURAL HISTORY COLLECTIONS CURATOR Temperature 36.8 C (98.2 F) 08/06/2021 11:48 AM NATURAL HISTORY COLLECTIONS CURATOR Respiratory Rate 20 08/06/2021 11:48 AM NATURAL HISTORY COLLECTIONS CURATOR Oxygen Saturation 97% 08/06/2021 11:48 AM NATURAL HISTORY COLLECTIONS CURATOR Inhaled Oxygen Concentration - - Weight 97.5 kg (215 lb) 09/03/2020 12:46 PM NATURAL HISTORY COLLECTIONS CURATOR Height 175.3 cm (5' 9 ) 09/03/2020 12:46 PM NATURAL HISTORY COLLECTIONS CURATOR Body Mass Index 31.75 09/03/2020 12:46 PM NATURAL HISTORY COLLECTIONS CURATOR Plan of Treatment Health Maintenance Due Date [...] age to complete this topic Insurance COVID19 [facility] UNINSURED TESTING [place] [address] Care Teams Grade Foreman Relationship Specialty Start Date End Date Renetta Degroot PA-C PCP - General 09/03/20
[2024-12-05 10:48] LABS: Basophils Absolute Auto 0.1 K/mm3 (0.0-0.1); Basophils Percent Auto 0.6 % (0.2-1.2); Eosinophils Absolute Auto 0.2 K/mm3 (0-0.3); Eosinophils Percent Auto 2.5 % (0-4.4); Hematocrit 40.7 % (37.0-47.0); Hemoglobin 13.3 g/dL (12.0-15.0); Immature Granulocyte Absolute 0.02 K/mm3 (0.00-0.031); Immature Granulocyte Percent A 0.2 % (0-0.5); Lymphocytes Absolute Auto 1.51 K/mm3 (0.9-3.2); Lymphocytes Percent Auto 17.1 % (18.3-44.2); Mean Corpuscular HGB Conc 32.7 g/dl (32-36); Mean Corpuscular Hemoglobin 29.3 pg (26-34); Mean Corpuscular Volume 89.6 fl (80-100); Mean Platelet Volume 10.6 fl (7.4-10.4); Monocytes Absolute Auto 0.6 K/mm3 (0.1-0.6); Monocytes Percent Auto 6.6 % (2.6-8.5); Neutrophils Absolute Auto 6.5 K/mm3 (1.3-6.7); Platelet Count Result 249 k/mm3 (150-375); Red Blood Count 4.54 M/mm3 (4.2-5.4); Red Cell Distribution Width 13.1 % (11.5-14.5); White Blood Count 8.8 K/mm3 (4.5-10.0)
[2024-12-05 10:58] VITALS: BP 176/122; PULSE 65; RESP 16; O2SAT 100
[2024-12-05 10:59] LABS: Anion Gap 7 mmol/L (4-12); Blood Urea Nitrogen 12 mg/dL (7-17); Calcium 8.8 mg/dL (8.4-10.2); Carbon Dioxide 26 mmol/L (22-30); Chloride 108 mmol/L (98-107); Estimated CRCL calculation 106 ml/min; Estimated Glomerular Filt Rate > 60; Glucose 109 mg/dL (65-110); Potassium 3.7 mmol/L (3.4-5.0); Sodium 141 mmol/L (137-145)
--- NOTE | 2024-12-05 10:59 | ED_ITS ---
HPI - Recheck/Abnormal Lab/Rx General Chief Complaint: Recheck/Abnormal Lab/Rx Stated Complaint: htn Time Seen by Provider: 12/05/24 10:17 History of Present Illness HPI narrative: 49-year-old female with a past medical history including hypertension on losartan. Patient presents to the emergency room with chief complaint of a migraine headache with pain and throbbing sensation behind her right eye. She describes light sensitivity and sound sensitivity. Headache going on for last 2 days. Constant in nature. No exertional onset and she was waking up from sleep with the headache. States that she occasionally gets headaches with migraines and when her blood pressures are elevated. Her blood pressure was 190/110 at home and she was concerned and came to the hospital. In triage her blood pressure is 176/122. Did take her morning medications including Tylenol for headache without any relief of symptoms. Denies any shortness a breath, abdominal pain, back pain, fever, chills, trauma or injury. Does endorse light sensitivity and nauseousness without vomiting. No neurological deficits and ambulates with a steady gait. Related Data Allergies Allergy/AdvReac Type Severity Reaction Status Date / Time Penicillins Allergy Hives Verified 12/05/24 10:42 Review of Systems 2 Review of Systems: As [facility] Past Medical History Medical History History of hypertension Social History Social History Smoking status: Current every day smoker Tobacco type: e-cigarettes/vaping Alcohol intake: current Alcohol use details: occasional Substance use: current Substance use type: does not use Exam 2 Narrative: GENERAL: [Well-appearing, well-nourished, and in no acute distress.] HEAD: [Normocephalic, atraumatic.] EYES: [PERRLA and EOMI.] ENT: Nares clear, no rhinorrhea or epistaxis. Mucous membranes moist. NECK: Supple. CHEST: [Clear to auscultation. No respiratory distress.] HEART: [Regular rate and rhythm]. No murmur heard. [Normal peripheral pulses.] ABDOMEN: [Soft, nondistended], [nontender], [No rigidity or guarding] EXTREMITIES: Normal range of motion. [No edema.] SKIN: Warm, dry, no rash. NEURO: [No focal deficits]. Alert and oriented [x3.] PSYCH: [Normal mood and affect.] Course Vital Signs Vital signs: Vital Signs Pulse Rate 65 12/05/24 10:58 Respiratory Rate 16 12/05/24 10:58 Blood Pressure 176/122 H 12/05/24 10:58 Pulse Oximetry 100 12/05/24 10:58 Pulse Rate 63 12/05/24 12:19 Respiratory Rate 16 12/05/24 12:19 Blood Pressure 154/83 H 12/05/24 12:19 Pulse Oximetry 98 12/05/24 12:19 MDM - Recheck/Abnormal Lab/Rx MDM Narrative Medical decision making narrative: 49-year-old female with history of hypertension and previous migraines. She presents to the emergency depart with elevated blood pressure readings and a headache on the right side that is throbbing in nature, constant sensation for the last 2 days. No trauma or preceding symptoms. She woke up 2 days ago with a headache. Endorses photophobia and nauseousness with no other symptoms of neurological deficit. She is ambulatory with a steady gait, strong symmetric pulses and moving all extremities equally. She appears uncomfortable during my initial assessment but not any physical or respiratory distress. She has elevated blood pressure 176/120 to but not severe range. No other vital concerns. Symptoms consistent with potential migraine headache, tension-type headache, cluster headache. Low suspicion for acute intracranial pathology such as a subarachnoid hemorrhage or mass. Possibility of hypertensive crisis with the elevated blood pressure readings at home. Workup including CBC, BMP, CT of the head, chest x-ray and EKG ordered. She was given a combination medications for symptom relief including Compazine, diphenhydramine, Decadron and magnesium. She was re-evaluated after medications. Patient's laboratory studies are all reassuring. No leukocytosis or anemia. Normal platelet count. Electrolytes unremarkable. Normal renal function, normal glucose. Patient's chest x-ray is unremarkable. Her CT of the head shows some pituitary enlargement which could be hyperplasia versus adenoma. She is not having any visual deficits on examination and on re-evaluation had complete symptomatic resolution for migraine headache and felt significantly improved. She will be provided neurosurgical follow-up for this for potential MRI imaging outpatient and she was given strict return precautions which she verbalized. Patient is safe and stable for discharge home at this time. Medical Records Attestation: I reviewed the patient's medical records. Lab Data Attestation: I reviewed the patient's lab results. 12/05/24 10:41 12/05/24 10:41 Labs: Lab Results 12/05/24 Range/Units 10:41 WBC 8.8 (4.5-10.0) K/mm3 RBC 4.54 (4.2-5.4) M/mm3 Hgb 13.3 (12.0-15.0) g/dL Hct 40.7 (37.0-47.0) % MCV 89.6 (80-100) fl MCH 29.3 (26-34) pg MCHC 32.7 (32-36) g/dl RDW 13.1 (11.5-14.5) % Plt Count 249 (150-375) k/mm3 MPV 10.6 H (7.4-10.4) fl Immature Gran % (Auto) 0.2 (0-0.5) % Neut % (Auto) 73.0 (45.5-73.1) % Lymph % (Auto) 17.1 L (18.3-44.2) % [place] % (Auto) 6.6 (2.6-8.5) % Eos % (Auto) 2.5 (0-4.4) % Baso % (Auto) 0.6 (0.2-1.2) % Lymph # (Auto) 1.51 (0.9-3.2) K/mm3 [place] # (Auto) 0.6 (0.1-0.6) K/mm3 Eos # (Auto) 0.2 (0-0.3) K/mm3 Baso # (Auto) 0.1 (0.0-0.1) K/mm3 Abs Immat Gran (auto) 0.02 (0.00-0.031) K/mm3 Absolute Neuts (auto) 6.5 (1.3-6.7) K/mm3 Absolute Nucleated RBC 0.000 (0.0-0.012) K/mm3 Nucleated RBC % 0.0 (0.0-0.2) % Sodium 141 (137-145) mmol/L Potassium 3.7 (3.4-5.0) mmol/L Chloride 108 H (98-107) mmol/L Carbon Dioxide 26 (22-30) mmol/L Anion Gap 7 (4-12) mmol/L BUN 12 (7-17) mg/dL Creatinine 0.70 (0.7-1.0) mg/dL Estim Creat Clear Calc 106 ml/min Estimated GFR > 60 (59 - ) Glucose 109 (65-110) mg/dL Calcium 8.8 (8.4-10.2) mg/dL Imaging Data Attestation: I personally reviewed and interpreted this imaging study as follows: My impression: Impressions Head CT 12/05/24 10:37 IMPRESSION: 1. Pituitary appears enlarged which could be due to pituitary hyperplasia, pituitary adenoma, versus apophysitis or venous congestion in the setting of intracranial hypertension. Correlate clinically and consider follow-up pre and post contrast pituitary protocol MRI. Chest X-Ray 12/05/24 10:49 IMPRESSION: 1. Mild discoid atelectasis in the left lower lung zone. Discharge Plan Discharge Clinical Impression: Headache, migraine, Pituitary gland enlarged Patient Disposition: Home Condition: Stable Instructions: Antibiotic Form, Acute Headache (DC), Pituitary Adenoma (ED) Additional Instructions: Your CT scan shows that your pituitary gland is slightly enlarged which could be due to a number of factors including potential pituitary adenoma which is a noncancerous mass but could be causing your headaches in addition to high blood pressure readings. We will have you follow-up with your primary care provider and a neurosurgeon for evaluation with MRI imaging to see if this is causing any symptoms or any further interventions are needed. If you exhibit recurrent severe headache, vision loss, fevers, neck stiffness or any other concerns please return to the emergency department otherwise follow-up outpatient as able. Patient Language: Ukrainian Prescriptions: No Action ondansetron 4 mg tablet,disintegrating 4 mg PO Q6H PRN (Reason: nausea and vomiting) Qty: 10 0RF Follow-up/Referrals: pcp [Other] - 1 Week (Follow-up ER visit with your PCP) Lori Jaimes MD [Physician] - 1 Week (Pituitary enlargement/mass) PHYSICIAN NOT ON STAFF,NONSTAFF [Primary Care Provider] - Time of Disposition: 12:41
[2024-12-05] MEDS: diphenhydrAMINE HCl INJ 50 MG/ML VIAL 25 MG IV PUSH (11:10)
[2024-12-05] MEDS: PROCHLORPERAZINE EDISYLATE 10 MG/2 ML VIAL IV PUSH (11:10)
[2024-12-05] MEDS: dexAMETHasone SOD PHOS INJ 10 MG/ML 1 ML VIAL IV PUSH (11:10)
[2024-12-05] MEDS: MAGNESIUM SULF 2 GM/WATER 50ML 2 GM/50 ML BAG IVPB (11:12)
[2024-12-05 12:19] VITALS: BP 154/83; PULSE 63; RESP 16; O2SAT 98
== END 2024-12-05 13:01 | disposition home or self-care (01) ==
PROVIDERS: Emergency Provider Student in an Organized Health Care Education/Training Program
DX: G43.909 Migraine, unspecified, not intractable, without status migrainosus (principal); E23.6 Other disorders of pituitary gland; I10 Essential (primary) hypertension; F17.290 Nicotine dependence, other tobacco product, uncomplicated; R94.31 Abnormal electrocardiogram [ECG] [EKG]
CPT/HCPCS: 36415; 70450; 71045; 80048; 85025; 93005; 96365; 96375; 99284; J0780; J1100; J1200; J3475

== ENCOUNTER 2024-12-19 07:54 | Emergency (ER) | payer SELFPAY ==
--- NOTE | ~2024-12-19 | CT_ITS ---
EXAMINATION: CT BRAIN W/O DATE: 12/19/2024 09:06 INDICATION: Headache. TECHNIQUE: Computed tomography (CT) of the head was performed without intravenous contrast. The dose- length product was 681.00 mGy-cm. Automated exposure control and iterative reconstruction technique w ere employed. COMPARISON: CT dated 12/05/2024 FINDINGS: Normal brain parenchymal volume for age. Normal jordan-white differentiation. No acute intrac ranial hemorrhage, infarction, mass or mass effect. Mildly enlarged pituitary gland. Recommend correl ation with MRI. No ventriculomegaly or midline shift. Midline sagittal images demonstrate a normal corpus callosum, c raniovertebral junction and sella turcica. Basilar cisterns are patent. Paranasal sinuses and mastoids are pneumatized. No depressed skull fractures. IMPRESSION: 1. No acute intracranial abnormality. 2: Enlarged pituitary gland. Consider correlation with MRI without and with contrast using pituitary MRI protocol to exclude underlying mass. Reviewed, dictated and finalized at location A. IMPRESSION: 1. No acute intracranial abnormality. 2: Enlarged pituitary gland. Consider correlation with MRI without and with co ntrast using pituitary MRI protocol to exclude underlying mass.
--- OUTSIDE RECORDS SUMMARY | 2024-12-19 07:57 | XMS_ITS | Referral Summary ---
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
--- OUTSIDE RECORDS SUMMARY | 2024-12-19 07:57 | XMS_ITS | Clinical Summary ---
Author Organization [facility] [employer] Address [address] [place] [address] Care Team Providers Care Cane Flume Watcher Name Role Phone Renetta Degroot Primary Care Provider [phone] [phone] Source Comments [facility],non-ssm rehab Affiliates and Associated Physician Practices is amultiple site organization consisting of ambulatory clinics and hospital sitesin [place], [place], [place] and [place]. This disclosure is being madepursuant to the Care Everywhere program and may not contain all information available regarding this patient. 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
--- OUTSIDE RECORDS SUMMARY | 2024-12-19 07:57 | XMS_ITS | CONTINUITY OF CARE DOCUMENT ---
Author Name job kaiser Address Unknown Organization [facility] Address [id number] [place] [address] [address] [place] [address] Phone [phone] Care Team Providers Care Waiter/Waitress Tourist Class Name Role Phone Сергей Arnold MD Unavailable NAHUN HANKS MD Unavailable ANHUN HANKS MD Unavailable [phone] INSURANCE PROVIDERS Payer name Policy type / Coverage type [place] red democrat ID HEALTHCARE AND FAMILY SERVICES Medicaid 1 [id number]
--- OUTSIDE RECORDS SUMMARY | 2024-12-19 07:57 | XMS_ITS | Clinical Summary ---
Author Organization [facility] Address [address] [place] [address] Care Team Providers Care Instrument Tech Name Role Phone Renetta Degroot PA-C Primary Care Provider [phone] Allergies Active Allergy Reactions Criticality Noted Date [...] Comments Blood Pressure 133/95 08/06/2021 11:48 AM CAMPGROUND CARETAKER Pulse 60 08/06/2021 11:48 AM CAMPGROUND CARETAKER Temperature 36.8 C (98.2 F) 08/06/2021 11:48 AM CAMPGROUND CARETAKER Respiratory Rate 20 08/06/2021 11:48 AM CAMPGROUND CARETAKER Oxygen Saturation 97% 08/06/2021 11:48 AM CAMPGROUND CARETAKER Inhaled Oxygen Concentration - - Weight 97.5 kg (215 lb) 09/03/2020 12:46 PM CAMPGROUND CARETAKER Height 175.3 cm (5' 9 ) 09/03/2020 12:46 PM CAMPGROUND CARETAKER Body Mass Index 31.75 09/03/2020 12:46 PM CAMPGROUND CARETAKER Plan of Treatment Health Maintenance Due Date [...] age to complete this topic Insurance COVID19 [facility] UNINSURED [place] [address] Care Teams Instrument Tech Relationship Specialty Start Date End Date Renetta Degroot PA-C PCP - General 09/03/20
--- OUTSIDE RECORDS SUMMARY | 2024-12-19 07:57 | XMS_ITS | Clinical Summary ---
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
--- OUTSIDE RECORDS SUMMARY | 2024-12-19 07:57 | XMS_ITS | Continuity of Care Document ---
Author Organization [facility] Address [address] [place] [address] Phone Care Team Providers Care Resident Buyer Name Role Phone Jaylin Pablo Unavailable Unavailable Allergies, Adverse Reactions, Alerts Substance Reaction Status Criticality Penicillins Active No Information Procedures Procedure Date Office consultation, [place] Copay Payment Charge Advance Directives Directive Yes [...] Providers Copied on Encounter Office consultation , [facility], [address] [place] [address], [id number], tel:[phone] [place] Office cervical spine pain (chief complaint) lumbar spine pain (chief complaint) BackacheDegenerat ion Of Lumbosacral Disc (DDD)Sciatica Due To Displacement Of Lumbar DiscLumbago - Low Back Pain 3 Elliot Mosqueda. [address] [place] [address], [id number] , . tel:[phone] Family History Family Member Type Diagnosis Age At Onset Problem (finding) Family history of Cance r Payers Payer name Insurance type Covered green party ID Authoriza tion(s) IDPA [id number] Social History Type Description Quantity Date Captured [...]
[2024-12-19 08:00] VITALS: BP 158/108; PULSE 63; RESP 16; TEMP 36.4; O2SAT 99
--- OUTSIDE RECORDS SUMMARY | 2024-12-19 08:59 | XMS_ITS | Clinical Summary ---
Author Organization [facility] Address [address] [place] [address] Care Team Providers Care Glass Sander Name Role Phone Renetta Degroot PA-C Primary Care Provider [phone] Allergies Active Allergy Reactions Criticality Noted Date [...] Comments Blood Pressure 133/95 08/06/2021 11:48 AM SPEECH PATHOLOGY TEACHER Pulse 60 08/06/2021 11:48 AM SPEECH PATHOLOGY TEACHER Temperature 36.8 C (98.2 F) 08/06/2021 11:48 AM SPEECH PATHOLOGY TEACHER Respiratory Rate 20 08/06/2021 11:48 AM SPEECH PATHOLOGY TEACHER Oxygen Saturation 97% 08/06/2021 11:48 AM SPEECH PATHOLOGY TEACHER Inhaled Oxygen Concentration - - Weight 97.5 kg (215 lb) 09/03/2020 12:46 PM SPEECH PATHOLOGY TEACHER Height 175.3 cm (5' 9 ) 09/03/2020 12:46 PM SPEECH PATHOLOGY TEACHER Body Mass Index 31.75 09/03/2020 12:46 PM SPEECH PATHOLOGY TEACHER Plan of Treatment Health Maintenance Due Date [...] age to complete this topic Insurance COVID19 [facility] UNINSURED TESTING [place] [address] Care Teams Glass Sander Relationship Specialty Start Date End Date Renetta Degroot PA-C PCP - General 09/03/20
--- OUTSIDE RECORDS SUMMARY | 2024-12-19 08:59 | XMS_ITS | CONTINUITY OF CARE DOCUMENT ---
Author Name job kaiser Address Unknown Organization [facility] Address [address] [place] [address] [address] [place] [address] Phone [phone] Care Team Providers Care Shot Dropper Name Role Phone Сергей Arnold MD Unavailable [phone] NAHUN HANKS MD Unavailable NAHUN HANKS MD Unavailable INSURANCE PROVIDERS Payer name Policy type / Coverage type [employer] red constitution party ID HEALTHCARE AND FAMILY SERVICES Medicaid 1 [id number]
--- OUTSIDE RECORDS SUMMARY | 2024-12-19 08:59 | XMS_ITS | Clinical Summary ---
Author Organization [facility] [employer] Address [address] [place] [address] Care Team Providers Care Counter Server Name Role Phone Renetta Degroot Primary Care Provider [phone] Source Comments [facility],non-select specialty hospital Affiliates and Associated Physician Practices is amultiple site organization consisting of ambulatory clinics and hospital sitesin [place], [place], [place] and [place]. This disclosure is being madepursuant to the Care Everywhere program and may not contain all information available regarding this patient. 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
--- OUTSIDE RECORDS SUMMARY | 2024-12-19 08:59 | XMS_ITS | Continuity of Care Document ---
Author Organization [facility] Address [address] [place] [address] Phone Care Team Providers Care Western Philosophy Professor Name Role Phone Jaylin Pablo Unavailable Unavailable Allergies, Adverse Reactions, Alerts Substance Reaction Status Criticality Penicillins Active No Information Procedures Procedure Date Office consultation, [facility] Copay Payment Charge Advance Directives Directive [...] Providers Copied on Encounter Office consultation , [facility], [address] [place] [address], [id number], tel:[phone] [place] Office cervical spine pain (chief complaint) lumbar spine pain (chief complaint) BackacheDegenerat ion Of Lumbosacral Disc (DDD)Sciatica Due To Displacement Of Lumbar DiscLumbago - Low Back Pain 3 Elliot Mosqueda. [address] [place] [address], [id number] , . tel:[phone] Family History Family Member Type Diagnosis Age At Onset Problem (finding) Family history of Cance r Payers Payer name Insurance type Covered republican ID Authoriza tion(s) IDPA [id number] Social History Type Description Quantity Date Captured [...]
--- NOTE | 2024-12-19 09:27 | ED_ITS ---
HPI - General Adult General Chief complaint: Recheck/Abnormal Lab/Rx Stated complaint: high blood pressure, right side of face numb, h/a Time Seen by Provider: 12/19/24 08:49 History of Present Illness HPI narrative: 49-year-old female presenting to the emergency department for evaluation for recurrent headache. Patient was recently diagnosed with pituitary tumor and does have follow-up with Neurology/Neurosurgery at [facility] on January 12. Patient states when she woke up this morning had right-sided headache. Patient did have similar symptoms in November when she was diagnosed with pituitary tumor. Patient states that she did feel better with treatment with medication at that time but the symptoms came back this morning. Patient denies any falls or injury. Patient describes right-sided headache with light sensitivity. Patient denies any focal numbness or weakness. Related Data Allergies Allergy/AdvReac Type Severity Reaction Status Date / Time Penicillins Allergy Hives Verified 12/19/24 08:03 Review of Systems Review of Systems: All systems reviewed & are unremarkable except as noted in HPI and below PMFSH Past Medical History Medical History History of hypertension Social History Social History Smoking status: Current every day smoker Tobacco type: e-cigarettes/vaping Alcohol intake: current Alcohol use details: occasional Substance use: current Substance use type: does not use Exam Narrative: APPEARANCE: Well appearing, no pain, no distress, well-nourished. HEAD: normocephalic, atraumatic. EYES: PERRLA/EOMI, conjunctivae clear. NOSE: Normal no drainage EARS:TMS clear with good light reflex. THROAT: Pharynx clear, no exudate. NECK: Supple. No adenopathy, no masses. RESPIRATORY: Airway patent, respirations nonlabored. Clear to auscultation bilaterally, no rales, rhonchi, wheezing. CARDIOVASCULAR: Regular rate and rhythm without murmurs rubs or gallops. ABDOMINAL: Soft, nontender, nondistended, normal bowel sounds MUSCULOSKELETAL: Moves all extremities. Strength/ROM intact, No edema, No calf tenderness. NEURO: Alert. Cranial nerves II through XII intact. Grossly SKIN: Warm, dry. Normal Color Course Vital Signs Vital signs: Vital Signs Temperature 97.6 F 12/19/24 08:00 Pulse Rate 63 12/19/24 08:00 Respiratory Rate 16 12/19/24 08:00 Blood Pressure 158/108 H 12/19/24 08:00 Pulse Oximetry 99 12/19/24 08:00 Oxygen Delivery Room Air 12/19/24 08:00 Temperature 97.6 F 12/19/24 08:00 Pulse Rate 72 12/19/24 10:55 Respiratory Rate 16 12/19/24 10:55 Blood Pressure 172/107 H 12/19/24 10:55 Pulse Oximetry 99 12/19/24 10:55 Oxygen Delivery Room Air 12/19/24 08:00 Medical Decision Making MDM Narrative Medical decision making narrative: 39-year-old female presented to the emergency department for evaluation for evaluation of recurrent headache. Patient does have a known pituitary tumor and does have follow-up with neurology assessed Neurosurgery at [facility]. Head CT was negative for acute abnormality here patient was treated with IV diphenhydramine, IV dexamethasone, IV Compazine IV lactated Ringer's and IV Toradol. On re-ev aluation patient does feel significantly improved. Patient was encouraged to have close follow-up. All questions concerns were addressed. Differential Diagnosis Differential Diagnosis: Subdural hematoma, subarachnoid hemorrhage, worsening pituitary tumor, migraine, headache Vital Signs Vital Signs: Vital Signs Temperature 97.6 F 12/19/24 08:00 Pulse Rate 63 12/19/24 08:00 Respiratory Rate 16 12/19/24 08:00 Blood Pressure 158/108 H 12/19/24 08:00 Pulse Oximetry 99 12/19/24 08:00 Oxygen Delivery Room Air 12/19/24 08:00 Temperature 97.6 F 12/19/24 08:00 Pulse Rate 72 12/19/24 10:55 Respiratory Rate 16 12/19/24 10:55 Blood Pressure 172/107 H 12/19/24 10:55 Pulse Oximetry 99 12/19/24 10:55 Oxygen Delivery Room Air 12/19/24 08:00 Imaging Data Radiologist's impression: Impressions Head CT 12/19/24 09:13 IMPRESSION: 1. No acute intracranial abnormality. 2: Enlarged pituitary gland. Consider correlation with MRI without and with contrast using pituitary MRI protocol to exclude underlying mass. Discharge Plan Discharge Clinical Impression: Headache, Pituitary tumor Patient Disposition: Home Condition: Stable Instructions: Antibiotic Form, Acute Headache (ED) Additional Instructions: Tylenol and ibuprofen for pain control. Have close follow-up with neurology. If you have any worsening symptoms then please call or return to the emergency department. Patient Language: Spanish Prescriptions: No Action ondansetron 4 mg tablet,disintegrating 4 mg PO Q6H PRN (Reason: nausea and vomiting) Qty: 10 0RF Follow-up/Referrals: PHYSICIAN NOT ON STAFF,NONSTAFF [Primary Care Provider] -
[2024-12-19] MEDS: KETOROLAC 30 MG/ML VIAL (*BKC) IV PUSH (09:47)
[2024-12-19] MEDS: LACTATED RINGERS 1,000 ML 999 ML IV CONT (09:48)
[2024-12-19] MEDS: dexAMETHasone SOD PHOS INJ 10 MG/ML 1 ML VIAL IV PUSH (09:48)
[2024-12-19] MEDS: diphenhydrAMINE HCl INJ 50 MG/ML VIAL 25 MG IV PUSH (09:48)
[2024-12-19 09:51] VITALS: BP 169/99; PULSE 59; RESP 18; O2SAT 98
[2024-12-19] MEDS: PROCHLORPERAZINE EDISYLATE 10 MG/2 ML VIAL IV PUSH (09:51)
[2024-12-19 10:55] VITALS: BP 172/107; PULSE 72; RESP 16; O2SAT 99
== END 2024-12-19 10:56 | disposition home or self-care (01) ==
PROVIDERS: Emergency Provider Emergency Medicine
DX: R51.9 Headache, unspecified (principal); D49.7 Neoplasm of unspecified behavior of endocrine glands and other parts of nervous system; I10 Essential (primary) hypertension; F17.290 Nicotine dependence, other tobacco product, uncomplicated
CPT/HCPCS: 70450; 96361; 96374; 96375; 99284; J0780; J1100; J1200; J1885; J7120